=== PATIENT | female | born 1990 | race Caucasian/White ===

== ENCOUNTER 2017-02-28 06:47 | Emergency (ER) | payer BC, OTHER ==
[~2017-02-28] VITALS: Ht 167.6 cm; Wt 79.6 kg
[~2017-02-28 06:47] MED LIST: ADDERALL10 MG PO; CELEXA40 MG; INDOCIN25 MG PO; LEXAPRO10 MG PO; LOESTRIN 241 TABLET; LORAZEPAM0.5 MG PO; MACROBID100 MG PO; MOTRIN800 MG PO; NARCAN4 MG NS; NORCO 5/3251 TABLET PO; PEPCID20 MG PO; TRAMADOL HCL50 MG PO; TRI-PREVIFEM1 EACH; TYLENOL WITH C1 EACH PO; VALIUM5 MG PO; ZOFRAN8 MG PO
[2017-02-28 07:35] LABS: HEMATOCRIT 35.7 % (36.0-46.0); MCH 31.7 PG (29.0-34.0); MCHC 34.5 G/DL (30.0-36.0); MEAN PLAT.VOLUME 11.6 uM^3 (9.5-12.4); PLATELET COUNT 199 K/uL (156-360); RBC DIS.WIDTH-CV 12.4 % (11.8-14.6); RBC DIS.WIDTH-SD 41.5 % (39-53); RED BLOOD COUNT 3.88 M/uL (3.80-5.20); WHITE BLOOD COUNT 10.7 K/uL (4.1-10.2)
[2017-02-28 07:59] LABS: ADD MIUA? YES; BILIRUBIN NEGATIVE; BLOOD NEGATIVE; COLOR AMBER ((YELLOW)); GLUCOSE (STRIP) NEGATIVE; KETONES NEGATIVE; LEUKOCYTES TRACE; NITRITE NEGATIVE; PROTEIN (STRIP) 30; SPECIFIC GRAVITY 1.026 (1.000-1.030); UROBILINOGEN 0.2 MG/DL (0.2-1.0)
[2017-02-28 08:05] LABS: ANION GAP 9 MEQ/L (2-14); CHLORIDE 106 MEQ/L (99-109); SAMPLE HEMOLYSIS CHECK 2; SAMPLE ICTERIC CHECK 0; SAMPLE LIPEMIA CHECK 0; SODIUM 136 MEQ/L (136-147)
[2017-02-28 08:10] LABS: GFR ESTIMATE (CALCULATED) > 59 mL/min/; GLUCOSE 84 mg/dL (70-99); UREA NITROGEN (BUN) 6 mg/dL (9-23)
[2017-02-28 08:22] LABS: EPITHELIAL CELLS 3+ /HPF; MUCUS 2+ /LPF
[2017-02-28 08:23] LABS: AMORPHOUS URATES CRYSTALS 1+; BACTERIA NONE SEEN /HPF; CASTS NONE SEEN /LPF; CRYSTALS PRESENT; RED BLOOD CELLS 0-5 /HPF (0-5); WHITE BLOOD CELLS 0-5 /HPF (0-5)
[2017-02-28 08:26] LABS: POTASSIUM 3.9 mEq/L (3.7-5.4)
[2017-02-28 09:51] VITALS: BP 113/64
== END 2017-02-28 10:04 | disposition home or self-care (01) ==
LOC: EME 06:47
PROVIDERS: Nurse Practitioner Family
DX: O21.2 Late vomiting of pregnancy (principal); O99.344 Other mental disorders complicating childbirth; F32.9 Major depressive disorder, single episode, unspecified; F41.9 Anxiety disorder, unspecified; Z3A.22 22 weeks gestation of pregnancy; Z87.891 Personal history of nicotine dependence
CPT/HCPCS: 80048; 81003; 84999; 85027; 99281; 99284; J2405; J7030

== ENCOUNTER 2017-07-11 17:15 | Inpatient (IN) | payer OTHER ==
[~2017-07-11] VITALS: Ht 167.6 cm; Wt 90.2 kg
[2017-07-11 17:42] VITALS: BP 129/69
[2017-07-11] MEDS ORDERED: LEXAPRO20 MG PO (18:05)
[2017-07-11] MEDS ORDERED: BUPRENORPHINE HC2 MG SL (18:05)
[2017-07-11] MEDS ORDERED: PEPCID20 MG PO (18:06)
[2017-07-11] MEDS ORDERED: ZOFRAN8 MG PO (18:07)
[2017-07-11] MEDS ORDERED: ZOFRAN ODT8 MG PO (18:08)
[2017-07-11] MEDS ORDERED: TRAZODONE HCL50 MG PO (18:09)
[2017-07-11 19:00] VITALS: BP 131/78
[2017-07-11 19:34] LABS: EOSINOPHIL (%) 1.1 % (0-5); EOSINOPHIL COUNT 0.2 K/uL (0-0.3); HEMATOCRIT 31.1 % (36.0-46.0); IMMATURE GRANULOCYTE (%) 0.5 % (0.0-0.7); IMMATURE GRANULOCYTE COUNT 0.1 K/uL; INSTRUMENT ABS NEUTROPHIL CT 10.3 K/uL; MCH 29.1 PG (29.0-34.0); MCHC 32.8 G/DL (30.0-36.0); MCV 88.9 FL (83-99); MEAN PLAT.VOLUME 11.2 uM^3 (9.5-12.4); MONOCYTE (%) 6.2 % (3-12); MONOCYTE COUNT 0.8 K/uL (0-0.8); NEUTROPHIL (%) 77.2 % (45-76); NEUTROPHIL COUNT 10.3 K/uL (1.8-6.4); PLATELET COUNT 218 K/uL (156-360); RBC DIS.WIDTH-CV 12.9 % (11.8-14.6); RBC DIS.WIDTH-SD 41.9 % (39-53); WHITE BLOOD COUNT 13.3 K/uL (4.1-10.2)
[2017-07-11 20:00] VITALS: BP 129/72
[2017-07-11 20:10] LABS: AMPHETAMINES QUANT VALUE 0 NG/ML; BARBITUATES QUANT VALUE 0 NG/ML; BENZODIAZEPINES QUANT VALUE 0 NG/ML; BENZODIAZEPINES, URINE SCREEN Negative (200 ng/mL); MARIJUANA QUANT VALUE 0 NG/ML; OPIATES QUANTITATIVE VALUE 0 NG/ML; PHENCYCLIDINE QUANT VALUE 0 NG/ML
[2017-07-11 20:29] VITALS: BP 138/71
[2017-07-11 22:13] VITALS: BP 138/84
[2017-07-11 23:30] VITALS: BP 142/80
[2017-07-12] VITALS (35 sets, daily range): BP systolic 108–137; BP diastolic 56–80
[2017-07-13] VITALS (13 sets, daily range): BP systolic 107–133; BP diastolic 57–77
[2017-07-13] MEDS ORDERED: PERCOCET 5/31 TABLET PO (06:33)
[2017-07-13] MEDS ORDERED: MOTRIN800 MG PO (06:33)
[2017-07-14 03:11] VITALS: BP 127/67
[2017-07-14 06:18] VITALS: BP 114/59
[2017-07-14 06:23] LABS: EOSINOPHIL (%) 1.4 % (0-5); EOSINOPHIL COUNT 0.2 K/uL (0-0.3); HEMATOCRIT 24.1 % (36.0-46.0); IMMATURE GRANULOCYTE (%) 0.5 % (0.0-0.7); IMMATURE GRANULOCYTE COUNT 0.1 K/uL; INSTRUMENT ABS NEUTROPHIL CT 10.4 K/uL; LYMPHOCYTE COUNT 2.3 K/uL (1.0-2.8); MCH 29.2 PG (29.0-34.0); MCHC 32.4 G/DL (30.0-36.0); MCV 90.3 FL (83-99); MEAN PLAT.VOLUME 11.4 uM^3 (9.5-12.4); MONOCYTE (%) 7.8 % (3-12); MONOCYTE COUNT 1.1 K/uL (0-0.8); NEUTROPHIL (%) 73.9 % (45-76); NEUTROPHIL COUNT 10.4 K/uL (1.8-6.4); PLATELET COUNT 178 K/uL (156-360); RBC DIS.WIDTH-CV 13.2 % (11.8-14.6); RBC DIS.WIDTH-SD 43.4 % (39-53); WHITE BLOOD COUNT 14.1 K/uL (4.1-10.2)
[2017-07-14 06:24] LABS: RED BLOOD COUNT 2.67 M/uL (3.80-5.20)
[2017-07-14 07:29] VITALS: BP 112/54
[2017-07-14 10:56] VITALS: BP 136/76
[2017-07-14 16:14] VITALS: BP 130/73
[2017-07-15 03:38] VITALS: BP 141/82
[2017-07-15 04:50] VITALS: BP 176/97
[2017-07-15 04:53] VITALS: BP 134/63
[2017-07-15 05:20] VITALS: BP 134/76
[2017-07-15 07:15] VITALS: BP 134/77
[2017-07-15 14:42] VITALS: BP 126/71
[2017-07-16 08:13] VITALS: BP 126/61
[2017-07-16 16:42] VITALS: BP 148/80
[2017-07-16 23:01] VITALS: BP 134/78
[2017-07-17] MEDS ORDERED: PRENATAL VITAM1 EAC6 PO (09:12)
[2017-07-17] MEDS ORDERED: IBUPROFEN800 MG PO (09:13)
[2017-07-17 11:17] VITALS: BP 144/89
[2017-07-17 14:13] VITALS: BP 134/74
== END 2017-07-17 16:30 | disposition home or self-care (01) | DRG 765 ==
LOC: LDRP-OP 17:15 → 2WEST 17:17 → LDRP-OP 08-01 11:54
PROVIDERS: Nurse Practitioner; Obstetrics & Gynecology
DX: O48.0 Post-term pregnancy (principal); O62.1 Secondary uterine inertia; O61.0 Failed medical induction of labor; O99.02 Anemia complicating childbirth; D62 Acute posthemorrhagic anemia; O99.324 Drug use complicating childbirth; F11.20 Opioid dependence, uncomplicated; O99.344 Other mental disorders complicating childbirth; F32.9 Major depressive disorder, single episode, unspecified; F41.9 Anxiety disorder, unspecified; Z37.0 Single live birth; Z3A.41 41 weeks gestation of pregnancy; Z87.891 Personal history of nicotine dependence; Z91.410 Personal history of adult physical and sexual abuse
CPT/HCPCS: 80306 90; 85025; 86850; 86900; 86901; C1755; G0378; J0571; J0690; J1200; J1885; J2274; J3010; J7120